=== PATIENT | female | born 1990 | race Caucasian/White ===

== ENCOUNTER 2017-09-18 18:42 | Emergency (ER) | payer MEDICAID ==
[~2017-09-18] VITALS: Ht 154.9 cm; Wt 74.8 kg
[2017-09-18 19:12] VITALS: BP 98/58
--- NOTE | 2017-09-18 19:19 | NUR ---
Patient ambulated to bed 10. RN evaluating patient at bedside.
--- NOTE | 2017-09-18 19:25 | NUR ---
26Y F BIB FAMILY C/O MORALES SINCE 0200 THIS MORNING. PT STATES SHE USUALLY TAKE 1G OF TYLENOL OTC FOR RELIEF AND USUALLY WORKS BUT THIS TIME NOT. PT DENIES ANY N/V/D,SOB, CP AT THE MOMENT. PT AAOX4. BREATHING IS UNLABORED AND CLEAR.
[2017-09-18] MEDS ORDERED: KETOROLAC 60 MG/2 ML VIAL IM ONE (20:20)
[2017-09-18 21:22] VITALS: BP 132/76
--- NOTE | 2017-09-18 21:22 | NUR ---
Patient discharged with v/s stable. Written and verbal after care instructions given and explained. Patient alert, oriented and verbalized understanding of instructions. Ambulatory with steady gait. All questions addressed prior to discharge. ID band removed. Patient advised to follow up with PMD. Rx of MOTRIN 800MG AND PHENERGAN DM given. Patient educated on indication of medication including possible reaction and side effects. Opportunity to ask questions provided and answered.
== END 2017-09-18 21:22 | disposition home or self-care (01) ==
LOC: MED 18:42
DX: J06.9 Acute upper respiratory infection, unspecified (principal)
CPT/HCPCS: 81025; 96372; 99283; J1885